=== PATIENT | male | born 1995 | race Caucasian/White ===

== ENCOUNTER 2017-01-11 19:55 | Emergency (ER) | payer OTHER ==
[~2017-01-11] VITALS: Ht 91.4 cm; Wt 87.2 kg
[~2017-01-11 19:55] MED LIST: FLEXERIL10 MG PO; KEFLEX500 MG PO; MOTRIN800 MG PO; NORCO 5/3251 TABLET PO
[2017-01-11 22:49] VITALS: BP 164/96
== END 2017-01-11 22:52 | disposition home or self-care (01) ==
LOC: EME 19:55
DX: S90.31XA Contusion of right foot, initial encounter (principal); W17.89XA Other fall from one level to another, initial encounter; Y92.812 Truck as the place of occurrence of the external cause
CPT/HCPCS: 73630; 99281; 99283